=== PATIENT | female | born 1945 | race Native Hawaiian/Other Pacific Islander ===

== ENCOUNTER 2021-11-16 12:44 | Day surgery (SDC) | payer BC, MEDICARE, OTHER ==
[~2021-11-16] VITALS: Ht 157.5 cm; Wt 76.0 kg
[~2021-11-16 12:44] MED LIST: ALLOPURINOL300 MG PO; BISOPROLOL FUMAR5 MG PO; CELECOXIB100 MG PO; CHLORTHALIDONE25 MG PO; CIPROFLOXACIN250 MG PO; CLONIDINE HCL0.1 MG PO; DOXAZOSIN MESYLA8 MG PO; FUROSEMIDE20 MG PO; HYDRALAZINE HCL50 MG PO; LIPITOR20 MG PO; LISINOPRIL40 MG PO; MECLIZINE HCL25 MG PO; METFORMIN HCL500 MG PO; METOPROLOL SUCC50 MG PO; NEURONTIN300 MG PO; NORVASC10 MG PO; ONDANSETRON ODT8 MG PO; PRAVASTATIN SOD40 MG PO; SERTRALINE HCL100 MG PO; TORSEMIDE10 MG PO; TRAMADOL HCL50 MG PO
[2021-11-16] MEDS ORDERED: METOPROLOL SUC100 MG PO (13:04)
[2021-11-16] MEDS ORDERED: METFORMIN HCL500 MG PO (13:06)
[2021-11-16] MEDS ORDERED: GABAPENTIN300 MG PO (13:09)
--- NOTE | 2021-11-16 14:55 | NUR ---
11/16/21 1455 Anita Marie 1442 PATIENT INTO PACU. REPORT RECIEVED FROM LEONORA PALMER. PATIENT OXYGEN SATURATIONS ABOVE 95% ON ROOM AIR. BREATHING EQUAL AND UNLABORED. PATIENT IS DROWSY. DENIES ANY PAIN OR NAUSEA. IVF INFUSING. 1455 PATIENT IS AWAKE AND ORIENTED. PATIENT HEAD OF BED ELEVATED. BREATHING EQUAL AND UNLABORED. OXYGEN SATURATIONS ABOVE 95%. PATIENT DENIES ANY PAIN OR NAUSEA. IVF INFUSING.
--- NOTE | 2021-11-17 13:56 | OR ---
[facility] [address], [place] [address] Signed DATE OF OPERATION: 11/16/2021 SURGEON: Enma Belcher MD PREOPERATIVE DIAGNOSES: 1. 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 Last upper endoscopy 2014 for surveillance. 2. Colon screening. POSTOPERATIVE DIAGNOSES: 1. Poor flap valve and mild chronic esophagitis. No clear evidence of Garcia's esophagus. 2. Scattered diverticulosis of colon; adenomatous polyp, sigmoid colon (excised). PROCEDURES: 1. Esophagogastroduodenoscopy with biopsy. 2. Total colonoscopy to cecum with cold morcellation polypectomy. ANESTHESIA: Intravenous sedation; fentanyl 100 mcg and Versed 3 mg (total). INDICATION: This is a [place] woman who is a patient of Dr. Bhavana Burkett. She is initially referred for surveillance upper endoscopy on the basis of presumed history of Garcia's epithelium based on upper endoscopy she has undergone in [place], [place]. She is not currently on any anti-reflux medications. Her last upper endoscopy was said to be in [address] Dave Desai. She is having no dysphagia or other complaints currently. Additionally, she was considered appropriate for screening colonoscopy as it has been several years since last colonoscopy. She is thought to have history of collagenous colitis, but she is currently not bothered by diarrhea and she does not take typical medications for that. She understands the risks of bleeding, infection, and perforation related to colonoscopy and upper endoscopy and wished to proceed. FINDINGS: Upper endoscopy showed a poor flap valve and mild distal esophagitis, but no clear evidence of Garcia's epithelium. CLOtest was negative. On colonoscopy, the prep was good. Complete colonoscopy was undertaken to the cecum. There was no evidence of colitis in any way, though she did have scattered diverticula Electronically Signed By: ENMA BELCHER MD 11/17/21 1356 PATIENT NAME: DENICE COSBY OPERATIVE REPORT DATE OF : 43 REPORT #: [id number] PHYSICIAN: ENMA BELCHER MD PCP: BHAVANA BURKETT MD REPORT IS CONFIDENTIAL AND NOT TO BE RELEASED WITHOUT AUTHORIZATION [facility] [address], [place] [address] Signed throughout. There was a polyp at the sigmoid colon which was excised with cold morcellation technique. DESCRIPTION OF PROCEDURE: The patient was brought to the endoscopy suite and given topical lidocaine hypopharyngeal anesthesia, placed in lateral decubitus position. She was given intravenous sedation to the point of slurred speech and nystagmus with full cardiopulmonary monitoring. A bite block was placed. An Olympus video upper endoscope was passed in the hypopharynx. The vocal cords were visualized and found to be normal. The scope was advanced to the esophagus, throughout its length it was normal except in the distal portion there was mild inflammation but certainly no stricture and no typical finding of Garcia's epithelium in any way. The scope was advanced to the stomach, which was insufflated with air, rugal folds were normal. Pylorus was normal. Scope was passed through into the duodenum, which was normal. Biopsies were taken of the 3rd portion and bulbar portion of the duodenum. The scope was withdrawn to the stomach and biopsies taken of the antrum for both JUICE and pathologic testing. Retroflexed view was undertaken showing a rather poor flap valve. The scope was straightened and withdrawn to the distal esophagus. Initial biopsies were possibly beyond the GE junction itself, but there was no clear evidence of Garcia's epithelium in truth. Further withdrawal of scope allowed for biopsy of the midesophagus, though it appeared normal. The scope was withdrawn and removed and plans made for colonoscopy. Additional sedation was given and digital rectal examination performed. Olympus video colonoscope was passed in the rectum and manipulated throughout the colon noting scattered diverticula throughout. Scope was ultimately passed to the cecum. The ileocecal valve was normal. Scope was withdrawn from that point and examination undertaken upon withdrawal of scope. At about 40-50 cm in the sigmoid colon, there was a small sessile polyp this was excised with cold morcellation technique. Further withdrawal showed no other abnormality. The patient was taken to the recovery room in good condition. CONCLUDING DIAGNOSES: 1. Poor flap valve, mild chronic distal esophagitis but no clear evidence of Garcia's epithelium proper. CLOtest negative. 2. Colonoscopy. A small polyp of sigmoid; no evidence of inflammation or distortion of mucosa otherwise. PLAN: She will return to the ongoing care of Bhavana Burkett. I will review her pathology reports to assure there are no unexpected findings. Electronically Signed By: ENMA BELCHER MD 11/17/21 1356 PATIENT NAME: DENICE COSBY OPERATIVE REPORT DATE OF : 43 REPORT #: [id number] PHYSICIAN: ENMA BELCHER MD PCP: BHAVANA BURKETT MD REPORT IS CONFIDENTIAL AND NOT TO BE RELEASED WITHOUT AUTHORIZATION [address] [address] Signed Enma Belcher MD JM/MODL /[id number] cc: Bhavana Burkett MD Copies: ~ Electronically Signed By: ENMA BELCHER MD 11/17/21 1356 PATIENT NAME: DENICE COSBY OPERATIVE REPORT DATE OF : 43 REPORT #: [id number] PHYSICIAN: ENMA BELCHER MD PCP: BHAVANA BURKETT MD REPORT IS CONFIDENTIAL AND NOT TO BE RELEASED WITHOUT AUTHORIZATION
--- NOTE | 2021-11-20 11:19 | PATH ---
[facility] [address] [place], [place] [address] Signed SPECIMEN(S): A DUODENAL BIOPSY SPECIMEN(S): B DUODENAL BULB BIOPSY SPECIMEN(S): C ANTRUM BIOPSY SPECIMEN(S): D LOWER ESOPHAGEAL BIOPSY SPECIMEN(S): E SIGMOID POLYP SPECIMEN(S): F MID ESOPHAGEAL BIOPSY SPECIMEN SOURCE: A. DUODENAL BIOPSY B. DUODENAL BULB BIOPSY C. ANTRUM BIOPSY D. LOWER ESOPHAGEAL BIOPSY E. SIGMOID POLYP F. MID ESOPHAGEAL BIOPSY CLINICAL HISTORY: EGD/colonoscopy. Garcia's esophagus (2015), possible collagenous colitis. Post: Hiatal hernia and mild esophagitis. FINAL PATHOLOGIC DIAGNOSIS: A. Duodenum, biopsy: - Duodenal mucosa with no histopathologic abnormality. - Negative for increased intraepithelial lymphocytes or villous blunting. - Negative for dysplasia or malignancy. B. Duodenum, bulb, biopsy: - Duodenal mucosa with no histopathologic abnormality. - Negative for increased intraepithelial lymphocytes or villous blunting. - Negative for dysplasia or malignancy. C. Stomach, antrum, biopsy: - Antral/oxyntic mucosa with no significant histopathologic abnormality. - Negative for Helicobacter organisms on HE stain. - Negative for dysplasia or malignancy. D. Esophagus, lower, biopsy: - Reflux esophagitis. - Negative for intestinal metaplasia, dysplasia, or malignancy. E. Colon, sigmoid, polyp, polypectomy: - Fragments of tubular adenoma. - Negative for high-grade dysplasia or malignancy. F. Esophagus, mid, biopsy: - Acute and chronic esophagitis. - Fungal organisms morphologically consistent with Danielle present. PATIENT NAME: DENICE COSBY PATHOLOGY DATE OF : 43 REPORT #: [id number] PHYSICIAN: ANN BURDICK PCP: ALE MCFADDEN MD REPORT IS CONFIDENTIAL AND NOT TO BE RELEASED WITHOUT AUTHORIZATION [facility] [address], [place] [address] Signed - Negative for intestinal metaplasia, dysplasia, or malignancy. COMMENT: Regarding specimen F: A PAS/D stain (with appropriately staining controls) highlights fungal yeasts and pseudohyphae within detached squamous cell debris. NAL:cml:C2NR MICROSCOPIC EXAMINATION: Histologic sections of all submitted blocks are examined by light microscopy. These findings, together with the gross examination, support the pathologic diagnosis. GROSS DESCRIPTION: Six specimens are received in six containers labeled with "ZL." A. The specimen, labeled "ZL, biopsy, duodenum," is received in formalin and consists of two fragments of pink-villalobos tissue (0.2-0.3 cm in greatest dimension). The specimen is submitted entirely in cassette (A1). B. The specimen, labeled "ZL, biopsy, duodenal bulb," is received in formalin and consists of two fragments of pink-villalobos tissue (0.2-0.3 cm in greatest dimension). The specimen is submitted entirely in cassette (B1). C. The specimen, labeled "ZL, biopsy, antrum," is received in formalin and consists of one fragment of pink-villalobos tissue (0.3 cm in greatest dimension). The specimen is submitted entirely in cassette (C1). D. The specimen, labeled "ZL, biopsy, distal esophagus," is received in formalin and consists of five fragments of white-villalobos tissue (0.3-0.4 cm in greatest dimension). The specimen is submitted entirely in cassette (D1). E. The specimen, labeled "ZL, sigmoid polyp," is received in formalin and consists of four fragments of pink-villalobos tissue (0.2-0.3 cm in greatest dimension). The specimen is submitted entirely in cassette (E1). F. The specimen, labeled "ZL, biopsy, mid esophagus," is received in formalin and consists of two fragments of white-villalobos tissue (0.3-0.4 cm in greatest dimension). The specimen is submitted entirely in cassette (F1). AC (under the direct supervision of a pathologist) The Gross Description was prepared using a voice recognition system. The report PATIENT NAME: DENICE COSBY PATHOLOGY DATE OF : 43 REPORT #: [id number] PHYSICIAN: ANN BURDICK PCP: ALE MCFADDEN MD REPORT IS CONFIDENTIAL AND NOT TO BE RELEASED WITHOUT AUTHORIZATION [facility] [address] [place], [place] [address] Signed was reviewed for accuracy; however, sound-alike word errors, addition and/or deletions may occur. If there is any question about this report, please contact Client Services. PERFORMING LABORATORY: The technical component was performed by [employer], [address] [place] [id number] (CLIA# [id number]). [facility], [address] [place] [address] [address] (CLIA# [id number]). Diagnostician: Elham Beal MD Pathologist Electronically Signed 11/20/2021 Copies: ~ [facility]: [facility] DATE OF : 43 REPORT #: [id number] PHYSICIAN: ANN PATHOLOGY PCP: ALE MCFADDEN MD REPORT IS CONFIDENTIAL AND NOT TO BE RELEASED WITHOUT AUTHORIZATION
== END 2021-11-16 15:30 | disposition home or self-care (01) ==
LOC: OPS 12:44 → DS 12:44 → OPS 14:00 → DS 14:00 → OPS 15:30
PROVIDERS: ATTEND Surgery
PROC: 0DB98ZX Excision of Duodenum, Via Natural or Artificial Opening Endoscopic, Diagnostic (ICD-10-PCS; principal; 2021-11-16 14:00)
PROC: 0DBN8ZX Excision of Sigmoid Colon, Via Natural or Artificial Opening Endoscopic, Diagnostic (ICD-10-PCS; 2021-11-16 14:00)
DX: Z12.11 Encounter for screening for malignant neoplasm of colon (principal); D12.5 Benign neoplasm of sigmoid colon; I10 Essential (primary) hypertension; K21.00 Gastro-esophageal reflux disease with esophagitis, without bleeding; K57.30 Diverticulosis of large intestine without perforation or abscess without bleeding; K44.9 Diaphragmatic hernia without obstruction or gangrene; Z87.19 Personal history of other diseases of the digestive system; Z88.0 Allergy status to penicillin
CPT/HCPCS: 99153; G0500; J2250; J3010; J7121

== ENCOUNTER 2022-05-18 15:58 | Emergency (ER) | payer MEDICARE, OTHER ==
[~2022-05-18] VITALS: Ht 157.5 cm; Wt 75.8 kg
[~2022-05-18 15:58] MED LIST changes: +GABAPENTIN300 MG PO; +METOPROLOL SUC100 MG PO
[2022-05-18] MEDS ORDERED: ARTHRITIS PAIN650 MG PO (16:23)
[2022-05-18] MEDS ORDERED: MECLIZINE HCL25 MG PO (19:53)
--- NOTE | 2022-05-20 15:58 | EKG ---
[facility] [address] [facility] [place] [address] Signed Sinus rhythm with 1st degree AV block Minimal voltage criteria for LVH, may be normal variant ( R in aVL ) Borderline ECG No previous ECGs available Confirmed by SANDRO LEAVITT MD ([id number]) on 05/20/2022 3:58:18 PM Electronically Signed By: SANDRO LEAVITT MD 05/20/22 1558 PATIENT NAME: DENICE COSBY Electrocardiogram DATE OF : 43 PHYSICIAN: SANDRO LEAVITT MD REPORT #: [id number] REPORT IS CONFIDENTIAL AND NOT TO BE RELEASED WITHOUT AUTHORIZATION
== END 2022-05-18 21:12 | disposition home or self-care (01) ==
LOC: ED 15:58
DX: E83.42 Hypomagnesemia (principal); R42 Dizziness and giddiness; I10 Essential (primary) hypertension; E86.0 Dehydration; Z88.0 Allergy status to penicillin; Z79.899 Other long term (current) drug therapy; Z79.84 Long term (current) use of oral hypoglycemic drugs
CPT/HCPCS: 36415; 70450; 70496; 70498; 80053; 83735; 84484; 85025; 93005; 93010; 96361; 96375; 99284-25; J2060; J2405; J3475; J7030; Q9967

== ENCOUNTER 2023-05-08 06:35 | Day surgery (SDC) | payer BC, MEDICARE, OTHER ==
[2023-05-01 14:26] VITALS: BP 150/86
[~2023-05-08] VITALS: Ht 157.5 cm; Wt 70.9 kg
[~2023-05-08 06:35] MED LIST changes: +ARTHRITIS PAIN650 MG PO; +TRULICITY1.5 MG/0.5 SQ
[2023-05-08 07:17] VITALS: BP 144/68
--- NOTE | 2023-05-08 10:30 | NUR ---
05/08/23 1030 Michelle Nichols PATIENT ARRIVES IN PACU RESTING WITH EYES CLOSED. RESPIRATIONS ARE EVEN AND UNLABORED.
[2023-05-08 10:45] VITALS: BP 160/66
--- NOTE | 2023-05-08 11:00 | NUR ---
DARIUS 1045: PT IS BACK TO DS FROM PACU. SHE IS EASILY AROUSABLE. SHE HAD A BOUT OF NAUSEA WITH FOAMY OUTPUT IN EMESIS BAG IN PACU, SHE WAS GIVEN ZOFRAN IN PACU, PROVING TO GIVE PT RELIEF. IT WAS REPORTED TO PACU BY THE OR THAT THE PT HAD TAKEN HER HEARING AIDS OUT PRIOR TO GOING BACK TO SURGERY. PT STATES THAT THEY ARE IN HER BAG, SHE IS HANDED HER BAG TO FIND THEM. SHE CORRECTS HERSELF, STATING THAT SHE LEFT HER HEARING AIDS AT HOME. CALL LIGHT WITHIN REACH. WATER ON BEDSIDE TABLE.
[2023-05-08 11:46] VITALS: BP 129/58
--- NOTE | 2023-05-08 11:47 | NUR ---
LE 1145: PT IS DOING WELL. NO COMPLAINTS OF PAIN. PT IS TOLERATING SIPS OF WATER. SHE WOULD LIKE LALITO. CALL LIGHT WITHIN REACH. NO ADDITIONAL NEEDS OR CONCERNS.
--- NOTE | 2023-05-08 12:13 | NUR ---
LE 1210 PATIENT UP TO THE RESTROOM. PATIENT VOIDED 200 MLS OF CLEAR AND YELLOW URINE. PATIENT BACK TO BED TOLERATED THE AMBULATION WELL. CALL LIGHT WITHIN REACH NO FUTHER NEEDS. NO QUESITONS.
[2023-05-08 12:42] VITALS: BP 138/64
--- NOTE | 2023-05-08 12:43 | NUR ---
PT IS TOLERATING WATER AND JELLO, BUT STATES THAT SHE FEELS A LITTLE QUEASY. SHE IS GIVEN 8MG OF ZOFRAN IV. SHE DENIES PAIN. CALL LIGHT WITHIN REACH.
--- NOTE | 2023-05-08 12:53 | NUR ---
LE 1250: PT IS UP TO THE BATHROOM. SHE AMBULATES INDEPENDENTLY. SHE REPORTS SOME VERTIGO. SHE IS EDUCATED THAT HIS IS NORMAL. SHE IS EDUCATED ON HOW TO BEST DRESS HERSELF AND TO OPEN HER CURTAIN WHEN SHE IS READY. HER SON IS CALLED AND NOTIFIED THAT HE CAN HEAD THIS WAY TO PICK THE PT UP.
--- NOTE | 2023-05-08 13:17 | NUR ---
DARIUS 1306: PT IS GIVEN VERBAL AND WRITTEN DC INSTRUCTIONS. SHE VERBALIZES UNDERSTANDING. QUESTIONS ARE ASKED AND ANSWERED. SHE IS TAKEN TO SON'S PERSONAL VEHICLE VIA WC. SHE IS ABLE TO TRANSFER HERSELF WITHOUT ISSUES.
--- NOTE | 2023-05-09 05:55 | OR ---
[facility] [address] [facility] [place], [place] [address] Signed DATE OF OPERATION: 05/08/2023 SURGEON: Dillon Zamora MD PREOPERATIVE DIAGNOSIS: Right flank subcutaneous mass (2.5 x 1.3 x 3.3 cm). POSTOPERATIVE DIAGNOSIS: Right flank subcutaneous lipoma. PROCEDURE: Excision of lipoma. ESTIMATED BLOOD LOSS: None. INDICATIONS: Danni is a 77-year-old lady from the [facility]. 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 She continues to work and she drives herself every day. She has noticed a painful lump in the right flank over the inferior aspect of that rib cage. She had been to the urgent care clinic. The ultrasound showed a lipoma measuring 2.5 x 1.3 x 3.3 cm. She was asked to see me in the clinic to have it removed. She said it is very indurated and painful. We had reviewed the nature of a lipoma. She understands the nature of the incision required to remove it. She understands the expected intraop and postop course. There is risk including, but not limited to bleeding, infection, scarring, change in contour of the skin as well as recurrent lipomas in the same or other locations. She had expressed understanding and wished to proceed. DESCRIPTION OF PROCEDURE: I met with Danni in our preop area with our nurse. We were both able to agree and palpate this lipoma in the right flank area. We marked that appropriately. After this, Danni was taken into our operating room and placed in the left lateral decubitus position under general LMA anesthesia. Appropriate padding and monitoring were placed. She was given preoperative antibiotics along with subcutaneous heparin. SCDs were utilized. She was prepped and draped in the usual sterile fashion. We made a standard oblique incision over the palpable lesion went down and around the lesion with the cautery and with a Pean clamp. The entire lipoma was removed and passed off the field. We injected local anesthetic. The wound was irrigated and suctioned out until clear. We closed Juliana's fascia with a running 3-0 Monocryl suture. We closed the skin and dermis with interrupted 3-0 subcuticular Monocryl sutures. Dry gauze and tape was Electronically Signed By: DILLON ZAMORA MD 05/09/23 0555 PATIENT NAME: DANNI COSBY OPERATIVE REPORT DATE OF : 43 REPORT #: [id number] PHYSICIAN: DILLON ZAMORA MD PCP: ALE MCFADDEN MD REPORT IS CONFIDENTIAL AND NOT TO BE RELEASED WITHOUT AUTHORIZATION [address] [address] Signed applied. Danni was rotated into the supine position, weaned from her anesthesia, extubated in the OR, and taken to recovery room in stable condition. Dillon Zamora MD ALB/MODL /[id number] cc: MD Dillon Craig MD Copies: DILLON ZAMORA MD ~ Electronically Signed By: DILLON ZAMORA MD 05/09/23 0555 PATIENT NAME: DANNI COSBY OPERATIVE REPORT DATE OF : 43 REPORT #: [id number] PHYSICIAN: DILLON ZAMORA MD PCP: ALE MCFADDEN MD REPORT IS CONFIDENTIAL AND NOT TO BE RELEASED WITHOUT AUTHORIZATION
== END 2023-05-08 13:10 | disposition home or self-care (01) ==
LOC: DS 06:35
PROVIDERS: ATTEND Colon & Rectal Surgery
PROC: 0JB70ZZ Excision of Back Subcutaneous Tissue and Fascia, Open Approach (ICD-10-PCS; principal; 2023-05-08 09:00)
DX: D17.1 Benign lipomatous neoplasm of skin and subcutaneous tissue of trunk (principal); K58.9 Irritable bowel syndrome, unspecified; E78.5 Hyperlipidemia, unspecified; E11.9 Type 2 diabetes mellitus without complications; E79.0 Hyperuricemia without signs of inflammatory arthritis and tophaceous disease; Z79.84 Long term (current) use of oral hypoglycemic drugs; Z79.899 Other long term (current) drug therapy; I10 Essential (primary) hypertension
CPT/HCPCS: 00300; J0690; J1100; J1644; J1885; J2405; J2765; J3010; J7121

== ENCOUNTER → 2024-08-09 | Day surgery (SDC) | payer BC, MEDICARE, OTHER ==
[~2024-08-09] VITALS: Ht 157.5 cm; Wt 70.7 kg
[~2024-08-09] MED LIST changes: +DEXAMETHASONE SOD PHOS 4 MG/ML VIAL ONE; +ETOMIDATE 40 MG/20 ML VIAL ONE; +KETOROLAC TROMETHAMINE 30 MG/ML VIAL ONE; +LACTATED RINGER'S 1,000 ML IV ONE; +LACTATED RINGER'S 1,000 ML IV SCH; +LIDOCAINE HCL 4% 50 ML BTL ONE; +SEVOFLURANE 250 ML BTL INH ONE; +SODIUM CHLORIDE 0.9% 1,000 ML IV ONE; +SUCCINYLCHOLINE IN 0.9% NACL 200 MG/10 ML SYRINGE ONE; +ondansetron HCL 4 MG/2 ML VIAL ONE
[2024-08-09 14:56] LABS: BASOPHILS 0.7 % (0-2); EOSINOPHILS 2.4 % (0-6); HEMATOCRIT 39.4 % (35.0-50.0); HEMOGLOBIN 13.5 g/dL (12.0-18.0); LYMPHOCYTES 23.4 % (24-44); MCH 33.4 (27-36); MCHC 34.4 g/dl (30-36); MCV 97.1 fl (81-99); NEUTROPHILS 68.5 % (39-80); PLATELET COUNT 247 K/uL (140-440); RBC 4.06 M/ul (4.3-5.7); RDW 14.4 (10.5-15.0)
[2024-08-09 15:14] LABS: ALBUMIN 3.9 g/dL (3.4-5.0); ALBUMIN/GLOBULIN RATIO 0.91 (1.1-2.4); ANION GAP 12.5 (7-21); BILIRUBIN, TOTAL 0.4 mg/dL (0.2-1.0); BUN/CREATININE RATIO 21.18 (6.0-28.6); CALCIUM 9.3 mg/dL (8.5-10.1); CREATININE, SERUM 1.18 mg/dL (0.55-1.02); POTASSIUM 3.5 mmol/L (3.5-5.1); PROTEIN, TOTAL 8.2 g/dL (6.4-8.2)
--- NOTE | 2024-08-09 16:09 | CONS ---
[facility] [address] [facility] [place], [place] [address] Signed DATE OF CONSULTATION: 08/09/2024 CHIEF COMPLAINT: Esophageal foreign body. HISTORY OF PRESENT ILLNESS: Danni is an 79-year-old female, who unfortunately swallowed part of a mussel shell just a little while ago while eating lunch. She realized that it stuck in her throat and she came to the emergency room for evaluation. An x-ray and a CT scan confirmed this mussel shell is about the level of the aortic arch. I have been asked to see her as a general surgeon here in the emergency room. PAST MEDICAL HISTORY: 1. Hypertension. 2. Cardiomegaly. 3. Vertigo. 4. Gout. 5. Hyperlipidemia. 6. Osteoarthritis. 7. Diabetes. 8. Degenerative disc disease. PAST SURGICAL HISTORY: Includes: 1. Right knee surgery. 2. x2. SOCIAL HISTORY: She does not smoke or drink. She prefers the [facility]. Dr. Bhavana Burkett is her primary care provider. Bolivar is her son at [phone]. FAMILY HISTORY: None. REVIEW OF SYSTEMS: She had 10 systems reviewed there is nothing new to add. ALLERGIES: Penicillin causes hives. MEDICATIONS: 1. Tylenol. 2. Trulicity. Electronically Signed By: DILLON ZAMORA MD 08/09/24 1609 PATIENT NAME: DANNI COSBYJESSICADOMINIC CONSULTATION DATE OF : 43 REPORT #: [id number] PHYSICIAN: DILLON ZAMORA MD PCP: BHAVANA BURKETT MD REPORT IS CONFIDENTIAL AND NOT TO BE RELEASED WITHOUT AUTHORIZATION [facility] [address] [place], [place] [address] Signed 3. Chlorthalidone. 4. Metoprolol. 5. Metformin. 6. Gabapentin. 7. Meclizine. 8. Allopurinol. 9. Lisinopril. 10. Amlodipine. 11. Atorvastatin. 12. Celecoxib. PHYSICAL EXAMINATION: VITAL SIGNS: Her blood pressure is193/91, heart rate is 93, respiratory rate 16, temperature is 98.3. She is 95% on room air. She is 5 feet 2 inches tall at 70 kg with a body mass index of 28. GENERAL: This is an 79-year-old female, lying supine semi-recumbent in her hospital bed. The nurse is in the room with her. She is alert, awake and interactive. She is in no acute distress. LUNGS: Clear to auscultation bilaterally. HEART: Regular rate and rhythm without murmurs. ABDOMEN: Soft and nontender. LABORATORY DATA: Labs pending. EKG pending. RADIOGRAPHIC STUDIES: X-ray of her neck showed a foreign body around C6-C7. CT scan of the neck shows 3 x 15 x 18 mm foreign body consistent with a mussel shell at about T3. ASSESSMENT AND PLAN: Danni is an 79-year-old female, who presents with an esophageal foreign body consisting of a mussel shelf. I reviewed with Danni the need to put her under anesthesia and remove that with the help of . Hopefully, we can get that out. There is risk to that procedure including, but not limited to gas bloating, crampy abdominal pain, bleeding, perforation requiring surgery, and missed diagnosis. She has expressed understanding and would like to proceed. Dillon Zamora MD ALB/MODL Electronically Signed By: DILLON ZAMORA MD 08/09/24 1609 PATIENT NAME: DANNI COSBY CONSULTATION DATE OF : 43 REPORT #: [id number] PHYSICIAN: DILLON ZAMORA MD PCP: BHAVANA BURKETT MD REPORT IS CONFIDENTIAL AND NOT TO BE RELEASED WITHOUT AUTHORIZATION [facility] [address] [place], [place] [address] Signed /[id number] cc: MD Dillon Craig MD Copies: DILLON ZAMORA MD ~ Electronically Signed By: DILLON ZAMORA MD 08/09/24 1609 PATIENT NAME: DANNI COSBY CONSULTATION DATE OF : 43 REPORT #: [id number] PHYSICIAN: DILLON ZAMORA MD PCP: BHAVANA BURKETT MD REPORT IS CONFIDENTIAL AND NOT TO BE RELEASED WITHOUT AUTHORIZATION
--- NOTE | 2024-08-09 16:30 | NUR ---
08/09/24 1630 TAMARA BACH 1617 PT ARRIVED TO PACU VIA STREACHER. PT HAS ORAL AIRWAY IN PLACE, AND PT ON 10L OF O2 VIA FACE MASK. SOME POSITIONING REQUIRED TO MAINTAIN AIRWAY PATIENCY. ALL MONITORS ATTACHED. PT NON REACTIVE TO VERBAL AND TACTILE STIMULI. 1625 PT BECOMES REACTIVE TO TACTILE STIMULI. PT FOLLOW COMMANDS AND OPENS MOUTH, ORAL AIRWAY REMOVED. PT REMOVED FROM OXYGEN. O2 SAT ABOVE 90% ON RA. PT REPORTS NO PAIN OR NAUSEA AT THIS TIME. PT SAT UP, PT ON PHONE TEXTING.
[2024-08-09 16:35] VITALS: BP 144/76
--- NOTE | 2024-08-09 16:40 | NUR ---
PT BROUGHT OVER FROM PACU FOR RECOVERY/MEET DC CONDITIONS. SHE IS AWAKE AND ALERT, DENIES NEEDS OR PAIN AT THIS TIME.
--- NOTE | 2024-08-09 17:30 | NUR ---
PT HAS BEEN UP TO VOID, SIPPING ON 7UP, DENIES NAUSEA/PAIN. WAITING FOR SON TO COME AND GET HER.
--- NOTE | 2024-08-09 18:10 | NUR ---
PT WAS GIVEN D/C INSTRUCTIONS, VERBALIZES UNDERSTANDING, EXPLAINED NO DRIVING OR WORKING FOR 24 HOURS AFTER ANESTHESIA AND PT AGREES. IV DC/D WITH TIP IN TACT. PT WHEELED OUT TO CAR IN , GOT INTO HER CAR WHERE SON WAS WAITING TO TAKE HER HOME.
--- NOTE | 2024-08-10 06:14 | OR ---
[facility] [address] [place], [place] [address] Signed DATE OF OPERATION: 08/09/2024 SURGEON: Dillon Zamora MD PREOPERATIVE DIAGNOSIS: Esophageal foreign body (mussel shell). POSTOPERATIVE DIAGNOSIS: Esophageal foreign body (mussel shell). PROCEDURE: Upper endoscopy with foreign body removal x2. ESTIMATED BLOOD LOSS: None. INDICATIONS: Danni is an 79-year-old female, who was eating some mussels earlier today for lunch. She got a piece of the shell down in her esophagus. I was asked to come to the emergency room to see her as a local general surgeon. I have known Danni in the past. We talked about the need for the upper endoscopy under general anesthetic to remove that from her esophagus. She understands there is risk including, but not limited to gas bloating, crampy abdominal pain, bleeding, perforation requiring surgery, and missed diagnosis. She understands most of these patients go home afterwards. She would need an adult person to take her home. She had expressed understanding and wished to proceed. DESCRIPTION OF PROCEDURE: Danni was taken into our endoscopy suite and placed in the supine semi-recumbent position. She was placed under general endotracheal tube anesthesia per our nurse catcher filter tip. A bite block was utilized. The adult gastroscope was introduced and advanced under direct visualization of the camera without difficulty. We could easily see the mussel shell in front of this. We placed our basket over it and it broken about 2/3rd. We took the large piece out 1st without any difficulty whatsoever. We went back and grabbed the other piece with our basket and we removed it as well. One could easily see irritated the esophagus. We did not think it had perforated the esophagus. We went ahead and let the scope all the way down in the stomach and looked around and it came back. She probably has just a very tiny hiatal hernia but there is no disruption at the Z-line. The rest of the esophagus was unremarkable. After this, the gas was suctioned out and the gastroscope removed. Danni tolerated the procedure Electronically Signed By: DILLON ZAMORA MD 08/10/24 0614 PATIENT NAME: DANNI COSBY OPERATIVE REPORT DATE OF : 43 REPORT #: [id number] PHYSICIAN: DILLON ZAMORA MD PCP: BHAVANA MCFADDEN MD REPORT IS CONFIDENTIAL AND NOT TO BE RELEASED WITHOUT AUTHORIZATION [facility] [address] [place] [address] Signed quite well. RECOMMENDATIONS: Danni will be discharged to home later today. She can follow up my office as needed. MD ADITI Mcguire/PARAMJIT /[id number] cc: MD Bhavana Mcguire MD Copies: DILLON ZAMORA MD ~ Electronically Signed By: DILLON ZAMORA MD 08/10/24 0614 PATIENT NAME: DANNI COSBY OPERATIVE REPORT DATE OF : 43 REPORT #: [id number] PHYSICIAN: DILLON ZAMORA MD PCP: BHAVANA MCFADDEN MD REPORT IS CONFIDENTIAL AND NOT TO BE RELEASED WITHOUT AUTHORIZATION
--- NOTE | 2024-08-10 08:21 | EKG ---
[facility] [address] [place], [place] [address] Signed Sinus rhythm with 1st degree AV block Minimal voltage criteria for LVH, may be normal variant ( R in aVL ) Inferior infarct , age undetermined Cannot rule out Anterior infarct , age undetermined Abnormal ECG When compared with ECG of 01-MAY-2023 15:33, Inferior infarct is now present Confirmed by Codie Isaac MD ([id number]) on 08/10/2024 8:21:29 AM Electronically Signed By: CODIE ISAAC MD 08/10/24 0821 PATIENT NAME: DENICE COSBY Electrocardiogram DATE OF : 43 PHYSICIAN: CODIE ISAAC MD REPORT #: [id number] REPORT IS CONFIDENTIAL AND NOT TO BE RELEASED WITHOUT AUTHORIZATION
== END ==
LOC: ED 12:22 → DS 15:12
PROVIDERS: Emergency Medicine; ATTEND Colon & Rectal Surgery
PROC: 0DC58ZZ Extirpation of Matter from Esophagus, Via Natural or Artificial Opening Endoscopic (ICD-10-PCS; principal; 2024-08-09 15:49)
DX: T18.128A Food in esophagus causing other injury, initial encounter (principal); W44.F3XA Food entering into or through a natural orifice, initial encounter; I11.9 Hypertensive heart disease without heart failure; E11.9 Type 2 diabetes mellitus without complications; E78.5 Hyperlipidemia, unspecified; Z79.84 Long term (current) use of oral hypoglycemic drugs; Z79.899 Other long term (current) drug therapy; Z88.0 Allergy status to penicillin
CPT/HCPCS: 00731; 36415; 70360; 70490; 80053; 85025; 93005; 93010; 99285-25; J0330; J1100; J1885; J2405; J7121